=== PATIENT | female | born 1935 | race Caucasian/White ===

== ENCOUNTER 2017-09-05 08:12 | Inpatient (IN) | payer OTHER ==
[~2017-09-05] VITALS: Ht 149.9 cm; Wt 61.6 kg
[~2017-09-05 08:12] MED LIST: ALLOPURINOL100 MG PO; CATAPRES0.1 MG PO; FENTANYL1 EA12 TD; INDOMETHACIN50 MG PO; LIPITOR40 MG PO; LO-DOSE ASPIRIN81 M1 PO; LOTREL 5/201 CAPSULE PO; PERCOCET 5/31 TABLET PO; TIROSINT100 MCG PO; TOPROL XL25 MG PO; TRAMADOL HCL50 MG PO; XARELTO20 MG PO
[2017-09-05 09:26] LABS: APPEARANCE CLEAR ((CLEAR)); BILIRUBIN NEGATIVE; BLOOD NEGATIVE; COLOR YELLOW ((YELLOW)); GLUCOSE (STRIP) NEGATIVE; KETONES NEGATIVE; LEUKOCYTES NEGATIVE; NITRITE NEGATIVE; PROTEIN (STRIP) NEGATIVE; SPECIFIC GRAVITY 1.021 (1.000-1.030); UCUL ADDED? NO; UROBILINOGEN 0.2 MG/DL (0.2-1.0)
[2017-09-05 09:28] LABS: CHLORIDE 112 mEq/L (99-109); POTASSIUM 5.3 mEq/L (3.7-5.4); SODIUM 143 mEq/L (136-147)
[2017-09-05 09:30] LABS: GLUCOSE 118 mg/dL (70-99)
[2017-09-05 09:33] LABS: CREATININE 1.2 mg/dL (0.6-1.3); GFR ESTIMATE (CALCULATED) 45 mL/min/
[2017-09-05 09:34] LABS: UREA NITROGEN (BUN) 50 mg/dL (9-23)
[2017-09-05 09:37] LABS: HEMATOCRIT 29.6 % (36.0-46.0); HEMOGLOBIN 9.4 G/DL (11.9-15.5); MCH 26.5 PG (29.0-34.0); MCHC 31.8 G/DL (30.0-36.0); MCV 83.4 FL (83-99); PLATELET COUNT 315 K/uL (156-360); RBC DIS.WIDTH-CV 20.5 % (11.8-14.6); RBC DIS.WIDTH-SD 62.4 % (39-53); RED BLOOD COUNT 3.55 M/uL (3.80-5.20)
[2017-09-05] MEDS ORDERED: LOPRESSOR25 MG PO (10:33)
[2017-09-05] MEDS ORDERED: SYNTHROID100 MCG PO (10:34)
[2017-09-05 22:13] VITALS: BP 173/72
[2017-09-06 06:25] LABS: HEMATOCRIT 29.5 % (36.0-46.0); MCH 25.9 PG (29.0-34.0); MCHC 30.5 G/DL (30.0-36.0); PLATELET COUNT 283 K/uL (156-360); RBC DIS.WIDTH-CV 20.5 % (11.8-14.6); RED BLOOD COUNT 3.47 M/uL (3.80-5.20); WHITE BLOOD COUNT 2.5 K/uL (4.1-10.2)
[2017-09-06 06:47] LABS: ALBUMIN 2.8 G/DL (3.2-4.8); ALKALINE PHOSPHATASE 142 IU/L (3-129); ALT (GPT) 7 IU/L (3-49); AST (GOT) 9 IU/L (2-34); CHLORIDE 110 MEQ/L (99-109); CREATININE 1.2 MG/DL (0.6-1.3); GFR ESTIMATE (CALCULATED) 45 mL/min/; GLUCOSE 97 mg/dL (70-99); POTASSIUM 5.6 MEQ/L (3.7-5.4); SODIUM 141 MEQ/L (136-147); TOTAL BILIRUBIN 0.5 MG/DL (0.0-1.0); TOTAL PROTEIN 5.5 G/DL (6.4-8.3); UREA NITROGEN (BUN) 41 mg/dL (9-23)
[2017-09-06 07:12] VITALS: BP 162/72
[2017-09-06 07:15] LABS: INTER. NORMALIZED RATIO 1.3
[2017-09-06 07:17] LABS: PTT 28.5 SEC (25-37)
[2017-09-06 10:10] LABS: ABS NEUTROPHIL COUNT 0.2; ANISOCYTOSIS 1+; BASOPHILS 0.9 %; EOSINOPHIL ABS CT 0.2; LYMPHOCYTES 57.1 % (15.0-45.0); MACROCYTES 1+; MONOCYTES 27.7 % (0-9.0); PLAT.SUFFICIENCY ADEQUATE; POIKILOCYTOSIS 1+; SEG.NEUTROPHILS 6.3 % (46.0-76.0)
[2017-09-06 13:25] VITALS: BP 163/72
[2017-09-06 16:44] VITALS: BP 167/72
[2017-09-06 22:24] VITALS: BP 148/67
[2017-09-07 07:26] VITALS: BP 135/63
[2017-09-07 16:25] VITALS: BP 125/89
[2017-09-07 21:03] VITALS: BP 131/61
[2017-09-08 06:58] LABS: CHLORIDE 106 MEQ/L (99-109); CREATININE 1.5 MG/DL (0.6-1.3); GFR ESTIMATE (CALCULATED) 35 mL/min/; GLUCOSE 118 mg/dL (70-99); POTASSIUM 5.2 MEQ/L (3.7-5.4); SODIUM 137 MEQ/L (136-147); UREA NITROGEN (BUN) 49 mg/dL (9-23)
[2017-09-08 17:07] VITALS: BP 107/54
[2017-09-08 20:28] VITALS: BP 127/60
[2017-09-08 22:02] VITALS: BP 118/58
[2017-09-09 00:20] VITALS: BP 136/60
[2017-09-09 07:35] VITALS: BP 128/59
[2017-09-09] MEDS ORDERED: SENNA PLUS TAB1 EACH PO (14:49)
[2017-09-09] MEDS ORDERED: POLYETHYLENE GL17 GM PO (14:49)
[2017-09-09] MEDS ORDERED: BISAC-EVAC10 MG PR (14:49)
[2017-09-09] MEDS ORDERED: FENTANYL1 EAC1 TD (14:54)
[2017-09-09] MEDS ORDERED: ENDOCET 5-3251 EACH PO (14:54)
[2017-09-09 15:35] VITALS: BP 110/53
== END 2017-09-09 19:10 | DRG 687 ==
LOC: EME 08:12 → 5EAST 14:26 → EDOF 14:26 → ENRESERV 14:27 → 5EAST 21:49
PROVIDERS: Internal Medicine; Physician Assistant; Radiology Diagnostic Radiology
PROC: 0WB Anatomical Regions, General, Excision (ICD-10-PCS; principal; 2017-09-06)
DX: C64.9 Malignant neoplasm of unspecified kidney, except renal pelvis (principal); G89.3 Neoplasm related pain (acute) (chronic); C79.51 Secondary malignant neoplasm of bone; I10 Essential (primary) hypertension; E78.5 Hyperlipidemia, unspecified; I48.91 Unspecified atrial fibrillation; M10.9 Gout, unspecified; K59.00 Constipation, unspecified; E03.9 Hypothyroidism, unspecified; D64.9 Anemia, unspecified; D72.819 Decreased white blood cell count, unspecified; M25.512 Pain in left shoulder; M54.9 Dorsalgia, unspecified; M25.562 Pain in left knee; Z66 Do not resuscitate; Z79.01 Long term (current) use of anticoagulants; Z79.82 Long term (current) use of aspirin
CPT/HCPCS: 73502; 77012; 80048; 80053; 81003; 83883 90; 85025; 85027; 85610; 85730; 85999; 88305; 88341 TC; 88342 TC; 94799; 99281; 99285; J3010; J7040; J7512

== ENCOUNTER 2017-09-16 13:59 | Inpatient (IN) | payer OTHER ==
[~2017-09-16] VITALS: Ht 149.9 cm; Wt 70.6 kg
[~2017-09-16 13:59] MED LIST changes: +BISAC-EVAC10 MG PR; -CATAPRES0.1 MG PO; +CATAPRES0.2 MG PO; +ENDOCET 5-3251 EACH PO; +FENTANYL1 EAC1 TD; +LOPRESSOR25 MG PO; +POLYETHYLENE GL17 GM PO; +SENNA PLUS TAB1 EACH PO; +SYNTHROID100 MCG PO
[2017-09-16 14:25] LABS: HEMATOCRIT 25.7 % (36.0-46.0); HEMOGLOBIN 8.2 G/DL (11.9-15.5); MCH 25.9 PG (29.0-34.0); MCHC 31.9 G/DL (30.0-36.0); NRBC (%) 1.3 /100 WBC (0-0); RBC DIS.WIDTH-CV 20.6 % (11.8-14.6); RBC DIS.WIDTH-SD 60.8 % (39-53); RED BLOOD COUNT 3.16 M/uL (3.80-5.20); WHITE BLOOD COUNT 4.5 K/uL (4.1-10.2)
[2017-09-16 14:27] LABS: MCV 81.3 FL (83-99); PLATELET COUNT 437 K/uL (156-360)
[2017-09-16 14:52] LABS: APPEARANCE CLOUDY ((CLEAR)); BILIRUBIN NEGATIVE; BLOOD LARGE; COLOR AMBER ((YELLOW)); GLUCOSE (STRIP) NEGATIVE; KETONES NEGATIVE; LEUKOCYTES LARGE; NITRITE NEGATIVE; PROTEIN (STRIP) 30; SPECIFIC GRAVITY 1.019 (1.000-1.030)
[2017-09-16 14:53] LABS: ALBUMIN 2.8 G/DL (3.2-4.8); ALT (GPT) 12 IU/L (3-49); AST (GOT) 17 IU/L (2-34); CHLORIDE 104 MEQ/L (99-109); CREATININE 2.9 MG/DL (0.6-1.3); GFR ESTIMATE (CALCULATED) 16 mL/min/; GLUCOSE 111 mg/dL (70-99); POTASSIUM 5.5 MEQ/L (3.7-5.4); SODIUM 135 MEQ/L (136-147); UREA NITROGEN (BUN) 84 mg/dL (9-23)
[2017-09-16 14:55] LABS: ALKALINE PHOSPHATASE 299 IU/L (3-129); TOTAL BILIRUBIN 0.4 MG/DL (0.0-1.0); TOTAL PROTEIN 6.1 G/DL (6.4-8.3)
[2017-09-16 15:05] LABS: UCUL ADDED? YES; WHITE BLOOD CELLS TNTC /HPF (0-5)
[2017-09-16 15:15] LABS: ABS NEUTROPHIL COUNT 2.4; ANISOCYTOSIS 1+; BAND NEUTROPHILS 0.9 % (0-8.0); BURR CELLS 2+; EOSINOPHIL ABS CT 0; EOSINOPHILS 0.9 % (0-5.0); HYPOCHROMASIA 2+; LYMPHOCYTES 28.1 % (15.0-45.0); MACROCYTES 1+; METAMYELOCYTES 1.7 %; MONOCYTES 15.8 % (0-9.0); MYELOCYTES 0.9 %; NUCLEATED RBC'S 2.6; PLAT.SUFFICIENCY INCREASED; POIKILOCYTOSIS 2+; POLYCHROMASIA 1+; SEG.NEUTROPHILS 51.7 % (46.0-76.0); SPHEROCYTES 1+; TARGET CELLS 1+
[2017-09-16] MEDS ORDERED: DULCOLAX10 MG PR (16:12)
[2017-09-16] MEDS ORDERED: LINZESS72 MCG PO (16:29)
[2017-09-16] MEDS ORDERED: LISINOPRIL20 MG PO (16:30)
[2017-09-16] MEDS ORDERED: LIPITOR40 MG PO (16:32)
[2017-09-16] MEDS ORDERED: COLACE100 MG PO (16:32)
[2017-09-16] MEDS ORDERED: TYLENOL REGULA325 MG PO (16:33)
[2017-09-16] MEDS ORDERED: PHILLIPS'400 MG/5 M PO (16:34)
[2017-09-16] MEDS ORDERED: FLEET ENEMA-AD118 ML PR (16:34)
[2017-09-16] MEDS ORDERED: PERCOCET 7.51 TABLET PO (16:35)
[2017-09-16 18:15] VITALS: BP 168/72
[2017-09-16 20:27] VITALS: BP 125/58
[2017-09-16 21:02] LABS: ALBUMIN 2.6 G/DL (3.2-4.8); CHLORIDE 105 MEQ/L (99-109); POTASSIUM 5.6 MEQ/L (3.7-5.4); SODIUM 134 MEQ/L (136-147)
[2017-09-16 21:08] LABS: ALKALINE PHOSPHATASE 272 IU/L (3-129); ALT (GPT) 12 IU/L (3-49); AST (GOT) 17 IU/L (2-34); CREATININE 2.7 MG/DL (0.6-1.3); GFR ESTIMATE (CALCULATED) 18 mL/min/; GLUCOSE 151 mg/dL (70-99); TOTAL PROTEIN 5.9 G/DL (6.4-8.3); TROP-I INTERPRETATION NEGATIVE; TROPONIN-I 0.14 ng/mL (0.0-0.30); UREA NITROGEN (BUN) 83 mg/dL (9-23)
[2017-09-16 21:13] LABS: TOTAL BILIRUBIN 0.3 MG/DL (0.0-1.0)
[2017-09-17] VITALS (10 sets, daily range): BP systolic 104–163; BP diastolic 52–87
[2017-09-17 06:07] LABS: HEMATOCRIT 25.4 % (36.0-46.0); HEMOGLOBIN 7.9 G/DL (11.9-15.5); MCH 26.1 PG (29.0-34.0); MCHC 31.1 G/DL (30.0-36.0); MCV 83.8 FL (83-99); NRBC (%) 0.7 /100 WBC (0-0); PLATELET COUNT 409 K/uL (156-360); RBC DIS.WIDTH-CV 20.7 % (11.8-14.6); RBC DIS.WIDTH-SD 63.5 % (39-53); RED BLOOD COUNT 3.03 M/uL (3.80-5.20); WHITE BLOOD COUNT 5.5 K/uL (4.1-10.2)
[2017-09-17 06:33] LABS: TROP-I INTERPRETATION NEGATIVE; TROPONIN-I 0.14 ng/mL (0.0-0.30)
[2017-09-17 06:42] LABS: ALBUMIN 2.3 G/DL (3.2-4.8); CHLORIDE 106 MEQ/L (99-109); CREATININE 2.5 MG/DL (0.6-1.3); GFR ESTIMATE (CALCULATED) 20 mL/min/; GLUCOSE 144 mg/dL (70-99); PHOSPHORUS 3.5 mg/dL (2.5-4.9); SODIUM 137 MEQ/L (136-147); UREA NITROGEN (BUN) 82 mg/dL (9-23)
[2017-09-17 06:52] LABS: POTASSIUM 6.7 MEQ/L (3.7-5.4)
[2017-09-17 06:54] LABS: IRON 22 MCG/DL (35-150); TRANSFERRIN (TIBC) 135.4 mg/dL (215-380); TRANSFERRIN SATUR. 16 % (20-55)
[2017-09-17 09:50] LABS: FERRITIN 264 NG/ML (10-291)
[2017-09-17 15:22] LABS: ALBUMIN 2.5 G/DL (3.2-4.8); ALKALINE PHOSPHATASE 271 IU/L (3-129); ALT (GPT) 12 IU/L (3-49); AMYLASE 14 IU/L (1-118); AST (GOT) 18 IU/L (2-34); CHLORIDE 105 MEQ/L (99-109); CREATININE 2.1 MG/DL (0.6-1.3); GFR ESTIMATE (CALCULATED) 24 mL/min/; GLUCOSE 125 mg/dL (70-99); POTASSIUM 4.8 MEQ/L (3.7-5.4); SODIUM 136 MEQ/L (136-147); TOTAL BILIRUBIN 0.3 MG/DL (0.0-1.0); TOTAL PROTEIN 5.3 G/DL (6.4-8.3); UREA NITROGEN (BUN) 74 mg/dL (9-23)
[2017-09-18] VITALS (7 sets, daily range): BP systolic 90–122; BP diastolic 47–60
[2017-09-18 06:08] LABS: ALBUMIN 1.9 G/DL (3.2-4.8); CHLORIDE 107 MEQ/L (99-109); CREATININE 2.2 MG/DL (0.6-1.3); GFR ESTIMATE (CALCULATED) 23 mL/min/; PHOSPHORUS 4.3 mg/dL (2.5-4.9); SODIUM 136 MEQ/L (136-147); UREA NITROGEN (BUN) 73 mg/dL (9-23)
[2017-09-18 06:14] LABS: GLUCOSE 88 mg/dL (70-99)
[2017-09-18 06:15] LABS: POTASSIUM 6.5 MEQ/L (3.7-5.4)
[2017-09-18 11:35] LABS: STOOL OCCULT BLD 1ST SPECIMEN POSITIVE
[2017-09-18 13:35] LABS: CHLORIDE 104 MEQ/L (99-109); GFR ESTIMATE (CALCULATED) 25 mL/min/; SODIUM 139 MEQ/L (136-147); UREA NITROGEN (BUN) 74 mg/dL (9-23)
[2017-09-18 13:40] LABS: GLUCOSE 139 mg/dL (70-99); POTASSIUM 4.7 MEQ/L (3.7-5.4)
[2017-09-19 03:31] VITALS: BP 106/56
[2017-09-19 05:59] LABS: HEMATOCRIT 26.2 % (36.0-46.0); HEMOGLOBIN 7.8 G/DL (11.9-15.5); MCH 25.6 PG (29.0-34.0); MCHC 29.8 G/DL (30.0-36.0); MCV 85.9 FL (83-99); PLATELET COUNT 409 K/uL (156-360); RBC DIS.WIDTH-CV 20.7 % (11.8-14.6); RBC DIS.WIDTH-SD 64.9 % (39-53); RED BLOOD COUNT 3.05 M/uL (3.80-5.20); WHITE BLOOD COUNT 5.6 K/uL (4.1-10.2)
[2017-09-19 06:43] LABS: ALBUMIN 2.3 G/DL (3.2-4.8); ALBUMIN 3.2 G/DL (3.2-4.8); ALKALINE PHOSPHATASE 204 IU/L (3-129); ALT (GPT) 10 IU/L (3-49); AST (GOT) 11 IU/L (2-34); CHLORIDE 101 MEQ/L (99-109); CHLORIDE 105 MEQ/L (99-109); CREATININE 2.1 MG/DL (0.6-1.3); GFR ESTIMATE (CALCULATED) 24 mL/min/; GLUCOSE 113 mg/dL (70-99); POTASSIUM 4.8 MEQ/L (3.7-5.4); POTASSIUM 5.3 MEQ/L (3.7-5.4); SODIUM 139 MEQ/L (136-147); SODIUM 141 MEQ/L (136-147); TOTAL PROTEIN 4.8 G/DL (6.4-8.3); UREA NITROGEN (BUN) 78 mg/dL (9-23)
[2017-09-19 06:46] LABS: PHOSPHORUS 7.7 mg/dL (2.5-4.9)
[2017-09-19 06:47] LABS: GLUCOSE 97 mg/dL (70-99); TOTAL BILIRUBIN 0.4 MG/DL (0.0-1.0)
[2017-09-19] MEDS ORDERED: CEFDINIR300 MG PO (07:07)
[2017-09-19 07:30] LABS: GFR ESTIMATE (CALCULATED) > 59 mL/min/
[2017-09-19 07:35] LABS: CREATININE 0.7 MG/DL (0.6-1.3); UREA NITROGEN (BUN) 5 mg/dL (9-23)
[2017-09-19 08:07] VITALS: BP 128/61
[2017-09-19 12:09] VITALS: BP 111/56
[2017-09-19 16:22] VITALS: BP 125/60
[2017-09-19 17:39] LABS: STOOL OCCULT BLD 1ST SPECIMEN POSITIVE
[2017-09-19 22:39] VITALS: BP 135/73
[2017-09-20 07:06] VITALS: BP 95/50
== END 2017-09-20 11:02 | disposition hospice, home (50) | DRG 687 ==
LOC: EME 13:59 → EDOF 16:27 → 5EAST 16:27 → ENRESERV 16:43 → 5EAST 17:51
PROVIDERS: Emergency Medicine; Internal Medicine; Internal Medicine Nephrology
DX: C64.9 Malignant neoplasm of unspecified kidney, except renal pelvis (principal); C79.51 Secondary malignant neoplasm of bone; N17.9 Acute kidney failure, unspecified; N39.0 Urinary tract infection, site not specified; G89.3 Neoplasm related pain (acute) (chronic); E87.5 Hyperkalemia; I48.2 Chronic atrial fibrillation; E86.0 Dehydration; K59.03 Drug induced constipation; T40.2X5A Adverse effect of other opioids, initial encounter; I12.9 Hypertensive chronic kidney disease with stage 1 through stage 4 chronic kidney disease, or unspecified chronic kidney disease; N18.9 Chronic kidney disease, unspecified; R19.5 Other fecal abnormalities; E03.9 Hypothyroidism, unspecified; D63.1 Anemia in chronic kidney disease; D50.9 Iron deficiency anemia, unspecified; D63.0 Anemia in neoplastic disease; K86.1 Other chronic pancreatitis; E78.5 Hyperlipidemia, unspecified; M10.9 Gout, unspecified; E66.9 Obesity, unspecified; Z68.31 Body mass index [BMI] 31.0-31.9, adult; Z66 Do not resuscitate; Z51.5 Encounter for palliative care; Z85.828 Personal history of other malignant neoplasm of skin; Z86.73 Personal history of transient ischemic attack (TIA), and cerebral infarction without residual deficits; Z79.01 Long term (current) use of anticoagulants; M25.511 Pain in right shoulder
CPT/HCPCS: 71045; 74176; 76770; 80048 91; 80053; 80069; 81003; 82150; 82272; 82306; 82728; 82948; 83540; 83605; 84132 91; 84466; 84484; 85025; 85027; 85651; 86850; 86900; 86901; 87040; 87086; 93005; 94799; 99281; 99285; J0610; J0696; J1815; J2405; J7040; J7050; J7070